=== PATIENT | male | born 1980 | race Caucasian/White ===

== ENCOUNTER 2018-09-28 09:29 | Emergency (ER) | payer MEDICAID ==
[~2018-09-28] VITALS: Ht 175.3 cm; Wt 72.6 kg
[2018-09-28] MEDS ORDERED: NKM (09:35)
--- NOTE | 2018-09-28 09:40 | NUR ---
ED Nurse Note: PT WALKED IN TO ER TODAY FROM HOME. AOX4. PT C/O CONSTIPATION AND LOWER ABDOMINAL PAIN, 4/10 X 1 WEEK. LAST BM X 1 WEEK AGO. PT DENIES NAUSEA OR VOMITING. ACTIVE BOWEL SOUNDS IN ALL QUADRANTS. ABDOMEN APPEARS NONDISTENDED BUT IS TENDER TO PALPATION. PT STATES HE HAS NOT TAKEN ANYTHING AT HOME FOR CONSTIPATION RELIEF.
[2018-09-28 09:42] VITALS: BP 112/76
[2018-09-28] MEDS ORDERED: LACTULOSE20 GM/301 ORAL (09:56)
[2018-09-28] MEDS ORDERED: MIRALAX17 G2 ORAL (09:57)
--- NOTE | 2018-09-28 10:03 | NUR ---
ED Nurse Note: PT SITTING PEACEFULLY IN BED IN NAD. AOX4. PRESCRIPTIONS AND DISCHARGE PAPERWORK EXPLAINED TO PT. PT VERBALIZES UNDERSTANDING AND ALL QUESTIONS ANSWERED. PRESCRIPTIONS AND DISCHARGE PAPERWORK GIVEN TO PT AND ID WRISTBAND REMOVED. PT WALKED OUT OF ER WITH STEADY GAIT AND ALL BELONGINGS.
[2018-09-28 10:05] VITALS: BP 110/72
--- NOTE | 2018-09-28 10:47 | Emergency Room Report ---
History of Present Illness General Chief Complaint: Constipation Source: Patient Present Illness HPI Patient presents to the emergency department today complaining of no bowel movement for the last 7 days. Patient states that he does have some nausea but no vomiting. He has some diffuse abdominal discomfort especially when he's trying to bear down. He denies any fever chest pain shortness of breath. Denies any localized pain. Denies any dysuria or urinary frequency. States that his diet has not changed much recently. No history of trauma was noted. Symptoms noted to be moderate. Patient will likely laxative to help him go to the bathroom. He states that he did not try any laxatives [id number]. He does not provide a reasonable why he did not. Patient denies any prior history of surgery.No other modifying factors. No other associated signs and symptoms. No other complaints were noted. Symptoms noted to be mild-to- moderate. Allergies: Coded Allergies: PENICILLINS (Verified Allergy, Unknown, 09/28/18) Patient History Past Medical History: none Past Surgical History: none Pertinent Family History: none Social History: Denies: smoking, alcohol use, drug use Reviewed Nursing Documentation: PMH: Agreed; PSxH: Agreed Nursing Documentation-PMH Past Medical History: No Stated History Review of Systems All Other Systems: negative except mentioned in HPI Physical Exam Vital Signs Date Time Temp Pulse Resp B/P (MAP) Pulse Ox O2 Delivery O2 Flow Rate FiO2 09/28/18 09:33 98.2 85 19 104/73 98 Room Air Sp02 EP Interpretation: reviewed, normal General Appearance: normal inspection, well appearing, no apparent distress, alert Head: atraumatic Eyes: bilateral eye normal inspection ENT: normal ENT inspection, hearing grossly normal, normal voice Neck: normal inspection, full range of motion, supple, no bony tend Respiratory: normal inspection, lungs clear, normal breath sounds, no respiratory distress, no retraction, no wheezing Cardiovascular #1: regular rate, rhythm, no edema Gastrointestinal: normal inspection, normal bowel sounds, non tender, soft, no guarding, no hernia Genitourinary: no CVA tenderness Musculoskeletal: normal inspection, back normal, normal range of motion Neurologic: normal inspection, alert, responsive, speech normal Psychiatric: normal inspection, judgement/insight normal, mood/affect normal Skin: normal inspection, normal color, no rash Medical Decision Making Diagnostic Impression: Primary Impression: Constipation ER Course Patient presents emergency department today complaining of constipation. Differential considerations include bowel obstruction, appendicitis, irritable bowel, severe constipation, stool impaction just to name a few. Patient's exam and history is consistent with constipation. Given the patient does not have any evidence of bowel obstruction vomiting I do not feel that any workup is indicated this time. Instead we'll try patient on some laxatives. We'll provide prescription for Elsie lax and lactulose. Recommend close outpatient follow-up.Patient is advised to follow up with primary doctor in 2-3 days and return the emergency room for any worsening symptoms and as needed. Last Vital Signs Date Time Temp Pulse Resp B/P (MAP) Pulse Ox O2 Delivery O2 Flow Rate FiO2 09/28/18 10:05 98.3 78 16 110/72 98 Room Air Status: unchanged Disposition: HOME, SELF-CARE Condition: Stable Scripts Polyethylene Glycol 3350* (MIRALAX*) 17 Gm Powd.pack 17 GM ORAL DAILY for 7 Days, PACKET Prov: Ruy Buckner MD 09/28/18 Lactulose (LACTULOSE*) 20 Gm/30 Ml Solution 30 ML ORAL BID for 7 Days, ML 0 Refills Prov: Ruy Buckner MD 09/28/18 Referrals: [facility],REFERRING (PCP) Patient Instructions: Constipation, Adult Ruy Buckner MD Sep 28, 2018 10:46
== END 2018-09-28 10:04 | disposition home or self-care (01) ==
LOC: EMR 10:02
DX: K59.00 Constipation, unspecified (principal); Z88.0 Allergy status to penicillin
CPT/HCPCS: 99282